=== PATIENT | female | born 1985 | race African-American/Black ===

== ENCOUNTER 2016-09-09 01:33 | Emergency (ER) | payer OTHER ==
--- NOTE | ~2016-09-09 | US134 ---
[facility] A Service [facility] RADIOLOGY TEXT RESULTS PATIENT: LORETTA PHOENIX LOCATION: SED : [birth year] UNIT #: [id number] AGE: [address]: Tereso Pandya MD SEX: F ORDER DR: [id number] [place] [id number] MR#: [id number] Acc #: [id number] NAME: LORETTA PHOENIX : 1985 SEX: F STUDY DATE/TIME: 09/09/2016 2:46 UNIT: SED ROOM: STUDY DESCRIPTION: Transvaginal Attending Physician: eTreso Pandya M.D. Ordering Physician: Tereso Pandya M.D. Primary Care Physician: No Primary Care Physician MEDICAL IMAGING REPORT This report is preliminary unless electronic signature is present. EXAM Pelvic ultrasound INDICATION Vaginal bleeding and pain for the past day. PROCEDURE Gann-scale and Doppler imaging of the pelvis via transabdominal and transvaginal approach. COMPARISON None. FINDINGS Uterus anteverted and measures 7.2 x 4.5 x 5.2 cm. Left ovary measures 2.9 x 1.7 x 2.2 cm and is unremarkable. Endometrium measures 7 mm in thickness. Right ovary measures 2.1 x 2.4 x 1.6 cm and is unremarkable. IMPRESSION Negative pelvic ultrasound. Dictated by... Mustapha Dougherty M.D. THIS IS AN ELECTRONICALLY VERIFIED REPORT Mustapha Dougherty M.D. at 09/09/2016 10:23 PM EED/aa TD: 09/09/2016 07:05 JOB #: [id number] [facility] A [facility] RADIOLOGY TEXT RESULTS PATIENT: LORETTA PHOENIX LOCATION: SED : [birth year] UNIT #: [id number] AGE: [address]: Tereso Pandya MD SEX: F ORDER DR: MEDICAL IMAGING REPORT Page 1 of 1
[~2016-09-09 01:33] MED LIST: CIPRO PO; HYDROCODON-ACE1 EACH PO; HYDROCODONE BITA5 GM PO; METRONIDAZOLE PO; MOTRIN50 MG PO; VOLTAREN75 MG PO; ZOFRAN ODT4 MG SL
== END 2016-09-09 03:50 | disposition home or self-care (01) ==
LOC: SED 01:33
DX: N81.10 Cystocele, unspecified (principal); N93.9 Abnormal uterine and vaginal bleeding, unspecified; F17.210 Nicotine dependence, cigarettes, uncomplicated; Z79.2 Long term (current) use of antibiotics; Z88.8 Allergy status to other drugs, medicaments and biological substances
CPT/HCPCS: 36415; 76830; 84703; 99284